=== PATIENT | male | born 1975 | race Hispanic/Latino ===

== ENCOUNTER 2021-11-25 17:22 | Emergency (ER) | payer BC, OTHER | END 2021-11-25 21:11 | disposition home or self-care (01) | LOC: CSHERS 17:22 | DX: R50.9 Fever, unspecified (principal); I10 Essential (primary) hypertension; Z20.822 Contact with and (suspected) exposure to COVID-19 | CPT/HCPCS: 87081; 87430; 93005 ==

== ENCOUNTER 2023-09-16 13:25 | Emergency (ER) | payer OTHER, SELFPAY ==
[2023-09-16 14:01] LABS: Bilirubin Neg (Negative); Blood, Urine Negative (Negative); Clarity Clear (Clear); Glucose, Urine (Dipstick) Normal (Negative); Ketone, Urine Negative (Negative); Leukocyte Negative (Negative); Nitrite Negative (Negative); Protein, Urine (Dipstick) Negative (Neg-Trace); Specific Gravity, Urine 1.005 (1.005-1.030); Urobilinogen Normal mg/dL (Less than 2)
[2023-09-16 14:16] LABS: Bacteria/HPF Rare-Few HPF (None Seen); CAUTI Indications for Culture Dysuria,urgency,freq; RBC/HPF None Seen HPF (0-3); Squamous Epithelial 0-3 HPF (0-3); WBC/HPF None Seen HPF (0-3)
[2023-09-16 14:17] LABS: Urine Culture Reflex No No
[2023-09-16 15:21] LABS: Syphilis Antibody Nonreactive (Nonreactive); Syphilis Antibody Index 0.06 S/CO (<1.00 Non-Reactive)
[2023-09-19 23:37] LABS: HSV 1 - DNA Negative (Negative); HSV 2 - DNA Negative (Negative)
== END 2023-09-16 15:17 | disposition home or self-care (01) ==
LOC: CSHERS 13:25
DX: N50.9 Disorder of male genital organs, unspecified (principal); I10 Essential (primary) hypertension
CPT/HCPCS: 36415; 81001; 86780; 87529; 99283